=== PATIENT | female | born 1950 | race Caucasian/White ===

== ENCOUNTER 2024-08-03 17:43 | Emergency (ER) | payer MEDICARE, SELFPAY ==
--- NOTE | ~2024-08-03 | CT_ITS ---
History: Fall PROCEDURE: CT thoracic spine without intravenous contrast. COMPARISON: None TECHNIQUE: Multiple contiguous axial images of the thoracic spine were performed without the administration of i ntravenous contrast. DLP: 241 mGy-cm FINDINGS: 7 degrees of dextroscoliotic curvature is identified within the thoracic spine. Otherwise, maintenance of the normal curvature of the thoracic spine is present. No acute compression fractures are present. No soft tissue abnormality is noted. Impression: No acute fracture, as detailed above. Reviewed, dictated and finalized at location A. HIATRY RESIDENT Impression: No acute fracture, as detailed above.
--- NOTE | ~2024-08-03 | CT_ITS ---
History: Headache after fall PROCEDURE: CT head without contrast. COMPARISON: None TECHNIQUE: Axial imaging of the head performed from the skull base to the vertex without IV contrast. Sagittal a nd coronal reformations obtained. DLP: 605 mGy-cm FINDINGS: The ventricles are normal in size, shape and position. There is no mass, mass effect or midline shift. There is no abnormal extra-axial fluid collection or intracranial hemorrhage. Visualized paranasal sinuses are clear. The mastoid air cells are well aerated. No acute displaced fractures within the overlying cranium. Impression: No acute intracranial hemorrhage or suspicious mass effect. Reviewed, dictated and finalized at location A. D RUNNER Impression: No acute intracranial hemorrhage or suspicious mass effect.
--- NOTE | ~2024-08-03 | CT_ITS ---
History: Fall PROCEDURE: CT cervical spine without intravenous contrast. COMPARISON: None TECHNIQUE: Multiple contiguous axial images of the cervical spine were performed without the administration of i ntravenous contrast. DLP: 133 mGy-cm FINDINGS: Straightening and slight reversal of the normal curvature of the cervical spine is identified, likely muscular in origin. Degenerative disease is identified with osteophyte formation, disc space narrowing, endplate changes and facet arthropathy. No acute fractures are present. The bilateral lung apices are unremarkable. No soft tissue abnormality is present. The airway is unremarkable. Impression: Straightening and slight reversal of the normal curvature of the cervical spine, likely muscular in o rigin. Degenerative disease, without acute fracture. Reviewed, dictated and finalized at location A. OR SALES COMPENSATION ANALYST Impression: Straightening and slight reversal of the normal curvature of the cervical spine , likely muscular in origin. Degenerative disease, without acute fracture.
[2024-08-03 18:05] VITALS: BP 127/70; PULSE 80; RESP 16; TEMP 36.6; O2SAT 100
--- NOTE | 2024-08-03 18:12 | PC.NURSE ---
Pt. has no obvious injuries. No wounds. No areas of open skin.
--- OUTSIDE RECORDS SUMMARY | 2024-08-03 18:59 | XMS_ITS | Patient Health Summary ---
Author Organization [facility] [employer] Address [address] [place] [address] Care Team Providers Care [employer] Consultant Name Role Phone Brenda Voss MD Primary Care Provider [phone] Note from [facility],non-owned Affiliates and Associated Physician Practices is amultiple site organization consisting of ambulatory clinics and hospital sitesin [place], [place], [place] and [place]. This disclosure is being madepursuant to the Care Everywhere program and may not contain all information available regarding this patient. Last updated 18.[facility] Social History Tobacco Use Types Packs/Day Years Used Date Smoking Tobacco: Never Assessed Sex and Gender Information Value Date Recorded Sex Assigned at Not on file Gender Identity Not on file Sexual Orientation Not on file Procedures * XR LUMBAR SPINE 4VW OR MORE(Performed 10/23/2013) Performed for Neuropathy, peripheral Results * XR LUMBAR SPINE 4+VW ROUTINE (10/23/2013 12:48 PM CDT) Anatomical Region Laterality Modality Spine Radiographic Tricia ging 10/23/2013 12:5 9 PM CDT Narrative 10/23/2013 1:00 PM CDT 4 views lumbosacral spine INDICATION: Pain radiating down right leg COMPARISON: None FINDING:Vertebral bodies demonstrate normal height, disc space and alignment. Lumbosacral junction is intact. The facets and posterior processes are normal. Procedure Note Lawrence Murcia MD - 10/23/2013 4 views lumbosacral spine INDICATION: Pain radiating down right leg COMPARISON: None FINDING:Vertebral bodies demonstrate normal height, disc space and alignment. Lumbosacral junction is intact. The facets and posterior processes are normal. Brenda Voss MD [facility] Care Teams [employer] Consultant Relationship Specialty Start Date End Date Brenda Voss MD [id number] [id number] PCP - General Internal Medicine 10/23/13
--- OUTSIDE RECORDS SUMMARY | 2024-08-03 18:59 | XMS_ITS | Clinical Summary ---
Author Organization [facility] Address [address] [place] [address] Care Team Providers Care Target Setter Name Role Phone Kervin London MD Primary Care Provider [phone] Zonia Meadows HOT DIE PRESS FEEDER Unavailable [phone] Lawrence John Unavailable [phone] Allergies Active Allergy Reactions Criticality Noted Date Comments Amoxicillin-Pot Clavulanate Unknown 05/03/20 17 Sulfamethoxazole-Trimethopri m Swelling,Swollen tongue,Fatigue High 01/19/2019 Prednisone Unknown 05/18/2017 Sulfa (Sulfonamide Antibiotics) Fatigue,Unknown Low 01/19/2019 Medications escitalopram (LEXAPRO) 20 mg tabletIndication s:Anxiety with Depression Take 1 tablet (20 mg total) by mouth every morning Active acetaminophen ER (TYLENOL) 650 mg 8 hr tabletIndication s:Arthritic Pain Take 1 tablet (650 mg total) by mouth every 8 (eight) hours as needed for pain Active albuterol HFA (PROVENTIL HFA,VENTOLIN HFA,PROAIR HFA) 90 mcg/actuation inhalerIndicatio ns:Acute Asthma Attack Inhale 2 puffs every 6 (six) hours as needed for wheezing Active vitamin D3-vitamin K2 25 mcg (1,000 unit)-90 mcg tablet,disintegr ating Take 5,000 mg by mouth Active MULTIVITAMIN ORALIndications: supplement Take 1 tablet by mouth every morning 07/28/19 25 Discontinu ed(Therapy completed) anastrozole (ARIMIDEX) 1 mg tabletIndication s:Malignant neoplasm of overlapping sites of right breast in female, estrogen receptor positive (HCC) Take 1 tablet (1 mg total) by mouth daily 90 tablet 4 07/28/19 25 Discontinu ed(Therapy completed) Active Problems Problem Noted Date Diagnosed Date Bilateral impacted cerumen 12/21/2023 Tympanic membrane retraction, left 12/21/2023 Purulent postnasal drainage 08/05/2021 Sensorineural hearing loss (SNHL) of both ears 0 08/05/2021 Non-recurrent acute suppurat toyin otitis media of left ear without spontaneous rupture of tympanic membrane 07/21/2021 Dysfunction of right eustachian tube 02/09/2020 Mixed conductive and sensori neural hearing loss of right ear with restricted hearing of left ear 01/25/2020 Impacted cerumen of right ear 01/25/2020 Osteoporosis without current pathological fractu re 08/04/2019 Malignant neoplasm of overla pping sites of right breast in female, estrogen receptor positive 08/01/2019 Abnormal mammogram of right breast 04/10/2019 Resolved Problems Problem Noted Date Diagnosed Date Resolved Date Perforation of tympanic membrane 01/25/2020 02/09/2020 Encounters Date Type Department Care Team Description 08/01/2024 Telephone [facility] On[facility] [address] [place] [phone] Irma Hernadez RN 07/31/2024 Telephone [facility] Orthopedics and Sports Medicine [address] [place] [phone] Lawrence John PA Prolia status? 07/28/2024 3:00 PM AIRPLANE FLIGHT ATTENDANT Office Visit [facility] Oncology [address] [place] [address] [address] [place] [address] Zonia Meadows NP Malignant neoplasm of overlapping sites of right breast in female, estrogen receptor positive (HCC) (Primary Dx); Malignant neoplasm of upper-outer quadrant of left breast in female, estrogen receptor positive (HCC); jail (current) use of aromatase inhibitors; Post-menopausal osteoporosis; Screening for diabetes mellitus; Other emt intermediate (current) drug therapy; Vitamin D deficiency; Screening mammogram for breast cancer 07/28/2024 2:00 PM AIRPLANE FLIGHT ATTENDANT Lab [facility] [address] [place] [address] Malignant neoplasm of upper-outer quadrant of left breast in female, estrogen receptor positive (HCC); Malignant neoplasm of overlapping sites of right breast in female, estrogen receptor positive (HCC); long term acute care registered nurse (current) use of aromatase inhibitors; Post-menopausal osteoporosis; Screening for diabetes mellitus; Other halfway (current) drug therapy 06/28/2024 1:00 PM AIRPLANE FLIGHT ATTENDANT Office Visit [facility] Orthopedics and Sports Medicine [address] [place] [phone] Lawrence John PA Post-menopausal osteoporosis; long term acute care registered nurse (current) use of aromatase inhibitors 06/05/2024 Orders Only [facility]cology [address] [place] [address] [address] [place] [phone] Irma Hernadez, JM Post-menopausal osteoporosis (Primary Dx); long term acute care registered nurse (current) use of aromatase inhibitors 06/05/2024 Orders Only [facility] [address] [place] [phone] Zonia Meadows, TD 06/05/2024 Telephone [facility] [address] [place] [phone] Irma Hernadez, RN 05/16/2024 Orders Only [facility] Scanning, Provider from Last 3 Months Immunizations Name Administration Dates Next Due Influenza, Quadrivalent, Hig h Dose, Preservative Free, Intrr 03/20/2021,04/13/2020 Influenza, Unspecified 04/09/2023,04/02/2022 RSV Vaccine, Pref, Recombina nt, Subunit, Adjuvanted, PF, IM (Arexvy) 04/09/2023 Surgical History Surgery Date Site/Laterality Comments BREAST BIOPSY 04/19/2019 Right SECTION 1973, 1977 TONSILLECTOMY AND ADENOIDECTOMY as child BREAST BIOPSY 05/26/2019 Left MASTECTOMY COLONOSCOPY HAND SURGERY 04/15/2022 Medical History Medical History Date Comments Generalized headaches Neuropathy (CMS/HCC) Anxiety Asthma Allergic rhinitis Cancer (CMS/HCC) (HCC) HL (hearing loss) Dizziness Family History Medical History Relation Name Comments Dementia Father Dementia; Memor y loss. Has not been diagnosed with dementia yet Stroke Father Stroke; With ri ght sided deficit Coronary artery disease Mother Daniela nary artery disease; Had CABG and recent stent placement Dementia Mother Dementia; Memor y loss. Has not been diagnosed with dementia yet Skin cancer Mother Colon cancer Paternal Grandfather Relation Name Status Comments Father Alive Mother Alive Paternal Grandfather Social History Tobacco Use Types Packs/Day Years Used Date Smoking Tobacco: Never Smokeless Tobacco: Never Tobacco Cessation:Counseling Given: Not Answered Alcohol Use Standard Drinks/Week Comments Not Currently 0 (1 standard drink = 0.6 oz pur e alcohol) rare AUDIT-C Answer Date Recorded Frequency of Alcohol Consumption Not on file 07/28/2024 Q2: How many drinks containi ng alcohol do you have on a typical day when you are drinking? Patient does not drink Frequency of Binge Drinking Not on file 12/2024 Comments No Sex and Gender Information Value Date Recorded Sex Assigned at Not on file Legal Sex Female 4:53 PM AIRPLANE FLIGHT ATTENDANT Gender Identity Female 11/02/2019 9:02 PM CDT Sexual Orientation Straight 11/02/2019 9: 02 PM CDT Obstetrics History Last Filed Vital Signs Vital Sign Reading Time Taken Comments Blood Pressure 114/73 07/28/2024 2:16 PM AIRPLANE FLIGHT ATTENDANT Pulse 67 07/28/2024 2:16 PM AIRPLANE FLIGHT ATTENDANT Temperature 36.7 C (98 F) 07/28/2024 2:16 PM AIRPLANE FLIGHT ATTENDANT Respiratory Rate 18 07/28/2024 2:16 PM AIRPLANE FLIGHT ATTENDANT Oxygen Saturation 97% 07/28/2024 2:16 PM AIRPLANE FLIGHT ATTENDANT Inhaled Oxygen Concentration - - Weight 60.2 kg (132 lb 12.8 oz) 07/28/2024 2:16 PM AIRPLANE FLIGHT ATTENDANT Height 138.4 cm (4' 6.5 ) 07/28/2024 2:16 PM AIRPLANE FLIGHT ATTENDANT Body Mass Index 31.43 07/28/2024 2:16 PM AIRPLANE FLIGHT ATTENDANT Plan of Treatment Health Maintenance Due Date Last Done Comments Colon Cancer Screening-Colonoscopy 1950 Depression Screening 1950 Fall Risk Assessment 1950 Hepatitis C Screening 1950 Pneumococcal vaccine 65+ (1 of 2 - PCV) 1957 DTaP/Tdap/Td Vaccine (1 - Tdap) 1962 Hepatitis B Screening 1969 Well Visit 65+ 01/04/2016 Covid-19 Vaccine (3 - 2023-2 5 season) 2024 03/20/2021, 02/18/2021 Breast Cancer Screening-Mammogram 12/08/2024 12/09/2023, 12/09/2023, 12/03/2022, Additional history exists Osteoporosis Screening-Bone Density Scan 05/16/2026 05/16/2024, 03/02/2022, 03/01/2020 Influenza Vaccine Completed 03/18/2024, , 04/02/2022, Additional history exists Zoster Vaccine Completed 03/18/2024, 12/27/2023 Medical Devices Implanted Type Area Production Welder Device Identifier Shelf Expiration Date Model / Serial / Lot Sribu [id number] Magtrace Liquid Marker 10 Vial Carton - [id number] Implanted:Qty: 1 on 07/07/2019 by Kajal Tobar MD PhD at [facility] Srib[employer] [id number] / / Procedures Procedure Name Priority Date/Time Associated Diagnosis Comments EGFR Routine 07/28/2024 2:05 PM AIRPLANE FLIGHT ATTENDANT Malignant neoplasm of upper-outer quadrant of left breast in female, estrogen receptor positive (HCC) Malignant neoplasm of overlapping sites of right breast in female, estrogen receptor positive (HCC) jail (current) use of aromatase inhibitors Post-menopausal osteoporosis Screening for diabetes mellitus Other halfway (current) drug therapy DIFFERENTIAL AUTO Routine 07/28/2024 2:0 5 PM AIRPLANE FLIGHT ATTENDANT Malignant neoplasm of upper-outer quadrant of left breast in female, estrogen receptor positive (HCC) Malignant neoplasm of overlapping sites of right breast in female, estrogen receptor positive (HCC) jail (current) use of aromatase inhibitors Post-menopausal osteoporosis Screening for diabetes mellitus Other halfway (current) drug therapy CBC WITH AUTO DIFFERENTIAL Routine 07/28/2024 2:05 PM AIRPLANE FLIGHT ATTENDANT Malignant neoplasm of upper-outer quadrant of left breast in female, estrogen receptor positive (HCC) Malignant neoplasm of overlapping sites of right breast in female, estrogen receptor positive (HCC) jail (current) use of aromatase inhibitors Post-menopausal osteoporosis Screening for diabetes mellitus Other emt intermediate (current) drug therapy COMPREHENSIVE METABOLIC PANEL Routine 07/28/2024 2:05 PM AIRPLANE FLIGHT ATTENDANT Malignant neoplasm of upper-outer quadrant of left breast in female, estrogen receptor positive (HCC) Malignant neoplasm of overlapping sites of right breast in female, estrogen receptor positive (HCC) jail (current) use of aromatase inhibitors Post-menopausal osteoporosis Screening for diabetes mellitus Other halfway (current) drug therapy VITAMIN D 25 HYDROXY Routine 07/28/2024 2:05 PM AIRPLANE FLIGHT ATTENDANT Malignant neoplasm of upper-outer quadrant of left breast in female, estrogen receptor positive (HCC) Malignant neoplasm of overlapping sites of right breast in female, estrogen receptor positive (HCC) long term acute care registered nurse (current) use of aromatase inhibitors Post-menopausal osteoporosis Screening for diabetes mellitus Other halfway (current) drug therapy SCAN - RADIOLOGY/IMAGING 05/16/2024 SCREENING MAMMOGRAM LEFT W JANES UNILATERAL ONLY Schedule Routine, Read Routine (OP Routine) 12/09/2023 10:48 AM CDT Malignant neoplasm of overlapping sites of right breast in female, estrogen receptor positive (HCC) History of right mastectomy Encounter for follow-up surveillance of breast cancer Encounter for screening mammogram for malignant neoplasm of breast 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 73 m2 Comment: Interpretive Data Reference Interval Normal >/= 90 mL/min/1.73m2 Mildly decreased* 60 - 89 mL/min/1.73m2 Mildly to moderately decreased 45 - 59 mL/min/1.73m2 Moderately to severely decreased 30 - 44 mL/min/1.73m2 Severely decreased 15 - 29 mL/min/1.73m2 Kidney Failure < 15 mL/min/1.73m2 *Relative to young adult level Estimated glomerular filtration rate is determined by the 2020 CKD-EPI equation recommended by the National Kidney Foundation (A Unifying Approach to GFR Estimation: Recommendations of the NKF-ASK Task Force on Reassessing the Inclusion of Race in Diagnosing Kidney Disease, JASN 2020). The CKD-EPI equation should not be used for patients with unstable renal function and has not been validated in children and those over 70. Current interpretive data was last reviewed 2021. Testing performed by: [address] [address] Blood 07/28/2024 2:05 PM AIRPLANE FLIGHT ATTENDANT 07/28/2024 2:10 PM AIRPLANE FLIGHT ATTENDANT Zonia Meadows HOT DIE PRESS FEEDER LAB BLOOD ORDERABLES Final Result [facility] Department of Laboratories [place], [place] [id number] * Differential, auto (07/28/2024 2:05 PM AIRPLANE FLIGHT ATTENDANT) Neutrophil abs 3.3 1.5 - 6.5 K/cumm Comment:Testing performed by : [address] [address] Imm gran abs 0.0 0.0 - 0.1 K/cumm GRIFFIN Comment:Testing performed by : [address] [address] Lymphocyte abs 2.0 0.8 - 3.3 K/cumm GRIFFIN Comment:Testing performed by : [address] [address] Monocyte abs 0.4 0.2 - 0.8 K/cumm GRIFFIN Comment:Testing performed by : [address] [address] Eosinophil abs 0.1 0.0 - 0.5 K/cumm GRIFFIN Comment:Testing performed by : [address] [address] Basophil abs 0.1 0.0 - 0.1 K/cumm GRIFFIN Comment:Testing performed by : [address] [address] Neutrophil pct 56.3 % [facility] Comment: Interpretive Data Percent cell count reference ranges are not reported, since discordance with absolute values may lead to misinterpretation of CBC data. Current Interpretive Data was last revised on 2017. Testing performed by: [address] [address] Imm gran pct 0.2 % [facility] Comment: Interpretive Data Percent cell count reference ranges are not reported, since discordance with absolute values may lead to misinterpretation of CBC data. Current Interpretive Data was last revised on 2017. Testing performed by: [address] [address] Lymphocyte pct 34.1 % [facility] Comment: Interpretive Data Percent cell count reference ranges are not reported, since discordance with absolute values may lead to misinterpretation of CBC data. Current Interpretive Data was last revised on 2017. Testing performed by: [address] [address] Monocyte pct 7.3 % [facility] Comment: Interpretive Data Percent cell count reference ranges are not reported, since discordance with absolute values may lead to misinterpretation of CBC data. Current Interpretive Data was last revised on 2017. Testing performed by: [address] [address] Eosinophil pct 1.2 % [facility] Comment: Interpretive Data Percent cell count reference ranges are not reported, since discordance with absolute values may lead to misinterpretation of CBC data. Current Interpretive Data was last revised on 2017. Testing performed by: [address] [address] Basophil pct 0.9 % [facility] Comment: Interpretive Data Percent cell count reference ranges are not reported, since discordance with absolute values may lead to misinterpretation of CBC data. Current Interpretive Data was last revised on 2017. Testing performed by: [address] [address] Blood 07/28/2024 2:05 PM AIRPLANE FLIGHT ATTENDANT 07/28/2024 2:09 PM AIRPLANE FLIGHT ATTENDANT Zonia Meadows HOT DIE PRESS FEEDER LAB BLOOD ORDERABLES Final Result [facility] [address] [facility] Department [place] [address] * CBC with auto differential (07/28/2024 2:05 PM AIRPLANE FLIGHT ATTENDANT) WBC 5.8 3.8 - 9.9 K/cumm Comment:Testing performed by : [address] [address] Hgb 13.8 11.9 - 15.5 g/dL [facility] Comment:Testing performed by : [address], [address] Hct 41.6 35.6 - 45.5 % [facility] Comment:Testing performed by : [address] [address] Plt 219 150 - 400 K/cumm GRIFFIN Comment:Testing performed by : [address] [address] MPV 9.1 9.1 - 12.3 fL [facility] Comment:Testing performed by : [address] [address] RBC 4.61 3.90 - 5.20 M/cumm GRIFFIN Comment:Testing performed by : [address] [address] MCV 90.2 81.3 - 96.4 fL [facility] Comment:Testing performed by : [address] [address] MCH 29.9 27.1 - 33.3 pg [facility]FFIN Comment:Testing performed by : [address] [address] MCHC 33.2 32.3 - 35.7 g/dL [facility] Comment:Testing performed by : [address], [address] RDW CV 12.9 11.1 - 14.9 % [facility] Comment:Testing performed by : [address], [address] RDW SD 42.5 35.7 - 48.1 fL [facility] ARRIETA Comment:Testing performed by : [address] [address] NRBC abs 0.00 0.00 - 0.01 K/cumm [facility] AR[facility]ETA Comment:Testing performed by : [address] [address] Blood 07/28/2024 2:05 PM AIRPLANE FLIGHT ATTENDANT 07/28/2024 2:09 PM AIRPLANE FLIGHT ATTENDANT Zonia Meadows HOT DIE PRESS FEEDER LAB BLOOD ORDERABLES Final Result Performing Organization Address City/[facility]/ZIP Co de Phone Number [address] [place] [address] * Vitamin D 25 hydroxy (07/28/2024 2:05 PM AIRPLANE FLIGHT ATTENDANT) [facility] Vitamin D 25-OH 58.0 30.0 - 80.0 ng/mL Blood 07/28/2024 2:05 PM AIRPLANE FLIGHT ATTENDANT 07/28/2024 4:43 PM AIRPLANE FLIGHT ATTENDANT Zonia Meadows HOT DIE PRESS FEEDER LAB BLOOD ORDERABLES Final Result Performing Organization Address City/[facility] Co de Phone Number [address] [address] * Comprehensive metabolic panel (07/28/2024 2:05 PM AIRPLANE FLIGHT ATTENDANT) [facility] Sodium 141 135 - 145 mmol/L Comment:Testing performed by : [address] [address] Potassium, pl 4.3 3.3 - 4.9 mmol/L [facility] ARRIETA Comment:Testing performed by : [address] [address] Chloride 106 97 - 110 mmol/L [facility] ARRIETA Comment:Testing performed by : [address] [address] CO2 25 22 - 32 mmol/L [facility] ARRIETA Comment:Testing performed by : [address] [address] Anion gap 10 2 - 15 mmol/L [facility] Comment:Testing performed by : [address] [address] BUN 15 6 - 25 mg/dL [facility] Comment:Testing performed by : [address], [place]., [address] Creatinine 0.80 0.60 - 1.10 mg/dL [facility] Comment:Testing performed by : [address] [address] Glucose 103 70 - 199 mg/dL [facility] Comment: Interpretive Data Fasting glucose >/= 126 mg/dl is diagnostic for diabetes. Fasting is defined as no caloric intake for at least 8 hours. Fasting glucose between 100 mg/dl to 125 mg/dl is diagnostic of prediabetes. In a patient with classic symptoms of hyperglycemia or hyperglycemic crisis, a random glucose >/= 200 mg/dl is diagnostic for diabetes. In the absence of unequivocal hyperglycemia, results should be confirmed by repeat testing. The classification and Diagnosis of Diabetes Diabetes Care 202; 46: S19-S40. Current interpretive data was last revised 2022. Testing performed by: [address] [address] Calcium 10.0 8.5 - 10.3 mg/dL [facility] Comment:Testing performed by : [address] [address] Bilirubin, total 0.3 0.1 - 1.2 mg/dL [facility] Comment:Testing performed by : [address] [address] Protein, pl 7.2 6.5 - 8.5 g/dL [facility] Comment:Testing performed by : [address] [address] Albumin 4.2 3.5 - 5.0 g/dL GRIFFNI Comment:Testing performed by : [address] [address] Alk phos 95 40 - 130 Units/L [facility] Comment:Testing performed by : [address] [address] ALT 23 7 - 45 Units/L [facility] ARRIETA Comment:Testing performed by : [facility], [address] [place] [address]., [address] AST 25 10 - 45 Units/L GRIFFIN Comment:Testing performed by : [facility], [address] [place] [address]., [address] Blood 07/28/2024 2:05 PM AIRPLANE FLIGHT ATTENDANT 07/28/2024 2:10 PM AIRPLANE FLIGHT ATTENDANT Zonia Meadows NP LAB BLOOD ORDERABLES Final Result [facility] [address] [facility] Department [place] [address] * SCAN - RADIOLOGY/IMAGING (05/16/2024) Anatomical Region Laterality Modality Other us Provider Scanning Final Result * Screening Mammogram Left W Janes Unilateral Only (12/09/2023 10:48 AM CDT) Anatomical Region Laterality Modality Breast Left Mammography Narrative 12/10/2023 11:03 AM CDT Mammogram Technique: Left Breast Digital Breast Tomosynthesis, Unilateral C-view 2D Screening mammogram. Views obtained: left craniocaudal and left mediolateral oblique. Computer Aided Detection was performed. Mammogram Findings: The present examination has been compared to prior imaging studies performed on 11/22/2020, and at [facility] on 12/01/2021 and 12/03/2022. The breast is heterogeneously dense, which may obscure small masses. There is no suspicious abnormality in the left breast. Patient status post contralateral mastectomy for personal history of breast cancer. Impression: There is no mammographic evidence of malignancy. Annual screening mammography is recommended. If supplemental screening is desired, breast MRI would be recommended in this patient with heterogeneously dense breasts. OVERALL FINAL ASSESSMENT: BI-RADS CATEGORY 1: Negative. Procedure Note Katy Bazzi MD - 12/10/2023 Mammogram Technique: Left Breast Digital Breast Tomosynthesis, Unilateral C-view 2D Screening mammogram. Views obtained: left craniocaudal and left mediolateral oblique. Computer Aided Detection was performed. Mammogram Findings: The present examination has been compared to prior imaging studies performed on 11/22/2020, and at [facility] on 12/01/2021 and 12/03/2022. The breast is heterogeneously dense, which may obscure small masses. There is no suspicious abnormality in the left breast. Patient status post contralateral mastectomy for personal history ofbreast cancer. Impression: There is no mammographic evidence of malignancy. Annual screening mammography is recommended. If supplemental screeningis desired, breast MRI would be recommended in this patient with heterogeneously dense breasts. OVERALL FINAL ASSESSMENT: BI-RADS CATEGORY 1: Negative. us Provider Transcribed Order IMG MAMMO PROCEDURES Final Result from Last 3 Months or Most Recently Relevant to Health Maintenance Insurance MEDICARE COMMERCIAL GENERIC MEDICARE [facility] Advance Directives For more information, please contact: [phone] Documents on File Type Date Recorded Patient Summer Clerk Expl anation ADVANCE DIRECTIVE 07/07/2019 8:04 AM POWER OF POUND ATTENDANT-MEDICAL ADVANCE DIRECTIVE 07/07/2019 POWER OF A TTORNEY-MEDICAL * Full Code (Latest Code Status on File) Date Activated Date Inactivated Comments 07/07/2019 2:33 PM 07/09/2019 7:12 AM Care Teams Target Setter Relationship Specialty [place] [address] [place] [address] PCP - General Family Practice 03/22/19 Zonia Meadows NP [address] [address] Nurse Practitioner Medical Oncology 02/25/22 Lawrence John PA [address] [address] Physician Service Center Supervisor Orthopedic Surgery 06/06/24
--- OUTSIDE RECORDS SUMMARY | 2024-08-03 18:59 | XMS_ITS ---
Author Organization [facility] Address [address] [place] [address] Care Team Providers Care Surveying Crew Stake Runner Name Role Phone Kervin London MD Primary Care Provider +- [phone] Zonia Meadows NP Unavailable [phone] Lawrence John Unavailable [phone] Active Problems Problem Noted Date Diagnosed Date [...] 08/01/2019 Abnormal mammogram of right breast 04/10/2019 Current Oncology Plans No current plan information found. Past Plans Oncology Supportive Care Plan Name Start Date Discontinue Date Treatment Medications Discontinue Reason Plan Provider Zoledronic Acid (ZOMETA) Infusion 11/03/2019 02/10/2023 No medications scheduled. Therapy Complete Zonia Meadows NP Radiation Treatments * No radiation treatments are [facility]. Treatments may have been administered in another system. Resolved Problems Problem Noted Date Diagnosed Date Resolved Date Perforation of tympanic membrane 01/25/2020 02/09/2020
--- OUTSIDE RECORDS SUMMARY | 2024-08-03 18:59 | XMS_ITS | Referral Summary ---
Author Organization [facility] Address [facility] [place] [address] Care Team Providers Care Director Imaging Name Role Phone Kervin London MD Primary Care Provider [phone]- [phone] Zonia Meadows BRINE MAKER Unavailable + [phone] Lawrence John Unavailable [phone] Encounters Date Type Department Care Team Description 08/01/2024 Telephone [facility] [address] [place] [address] [address] [place] [address] Irma Hernadez RN 07/31/2024 Telephone [facility] Orthopedics [facility] Sports Medicine [facility] [address] [address] Lawrence John PA Prolia status? 07/28/2024 2:00 PM MEAL COOK Lab [facility] [address] [place] [address] Malignant neoplasm of upper-outer quadrant of left breast in female, estrogen receptor positive (HCC); Malignant neoplasm of overlapping sites of right breast in female, estrogen receptor positive (HCC); 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; Post-menopausal osteoporosis; Screening for diabetes mellitus; Other usp (current) drug therapy 07/28/2024 3:00 PM MEAL COOK Office Visit [facility] [address] [place] [address] [address] [place] [address] Zonia Meadows, TD Malignant neoplasm of overlapping sites of right breast in female, estrogen receptor positive (HCC) (Primary Dx); Malignant neoplasm of upper-outer quadrant of left breast in female, estrogen receptor positive (HCC); 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; Post-menopausal osteoporosis; Screening for diabetes mellitus; Other usp (current) drug therapy; Vitamin D deficiency; Screening mammogram for breast cancer 06/28/2024 1:00 PM MEAL COOK Office Visit [facility] Orthopedics and Sports Medicine [address] [place] [phone] Lawrence John PA Post-menopausal osteoporosis; alf (current) use of aromatase inhibitors 06/05/2024 Orders Only [facility] [address] [place] [address] [address] [place] [address] Irma Hernadez, JM Post-menopausal osteoporosis (Primary Dx); 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 06/05/2024 Orders Only [facility] [address] [place] [address] [address] [place] [address] Zonia Meadows NP 06/05/2024 Telephone [facility] [address] [place] [address] [address] [place] [address] Irma Hernadez, JM 05/16/2024 Orders Only [facility] Scanning, Provider from Last 3 Months Allergies Active Allergy Reactions Criticality Noted Date [...] Date Perforation of tympanic membrane 01/25/2020 02/09/2020 Immunizations Name Administration Dates Next Due Influenza, Quadrivalent, [place] Dose, Preservative Free, Intrr 03/20/2021,04/13/2020 Influenza, Unspecified 04/09/2023,04/02/2022 RSV Vaccine, Pref, Recombina nt, Subunit, Adjuvanted, PF, IM (Arexvy) 04/09/2023 Social History Tobacco Use Types Packs/Day Years [...] on file Legal Sex Female 4:53 PM MEAL COOK Gender Identity Female 11/02/2019 9:02 PM CDT Sexual Orientation Straight 11/02/2019 9: 02 PM CDT Last Filed Vital Signs Vital Sign Reading Time Taken Comments Blood Pressure 114/73 07/28/2024 2:16 PM MEAL COOK Pulse 67 07/28/2024 2:16 PM MEAL COOK Temperature 36.7 C (98 F) 07/28/2024 2:16 PM MEAL COOK Respiratory Rate 18 07/28/2024 2:16 PM MEAL COOK Oxygen Saturation 97% 07/28/2024 2:16 PM MEAL COOK Inhaled Oxygen Concentration - - Weight 60.2 kg (132 lb 12.8 oz) 07/28/2024 2:16 PM MEAL COOK Height 138.4 cm (4' 6.5 ) 07/28/2024 2:16 PM MEAL COOK Body Mass Index 31.43 07/28/2024 2:16 PM MEAL COOK Plan of Treatment Not on file Medical Devices Implanted Type Area Materials Supervisor Device Identifier Shelf Expiration Date Model / Serial / Lot Mr Banana [id number] Magtrace Liquid Marker 10 Vial Carton - [id number] Implanted:Qty: 1 on 07/07/2019 by Kajal Tobar MD PhD at [facility] Mr Banana [id number] / / Procedures Procedure Name Priority Date/Time Associated Diagnosis Comments EGFR Routine 07/28/2024 2:05 PM MEAL COOK Malignant neoplasm of upper-outer quadrant of left breast in female, estrogen receptor positive (HCC) Malignant neoplasm of overlapping sites of right breast in female, estrogen receptor positive (HCC) alf (current) use of aromatase inhibitors Post-menopausal osteoporosis Screening for diabetes mellitus Other usp (current) drug therapy DIFFERENTIAL AUTO Routine 07/28/2024 2:0 5 PM MEAL COOK Malignant neoplasm of upper-outer quadrant of left breast in female, estrogen receptor positive (HCC) Malignant neoplasm of overlapping sites of right breast in female, estrogen receptor positive (HCC) 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 Post-menopausal osteoporosis Screening for diabetes mellitus Other rat exterminator (current) drug therapy CBC WITH AUTO DIFFERENTIAL Routine 07/28/2024 2:05 PM MEAL COOK Malignant neoplasm of upper-outer quadrant of left breast in female, estrogen receptor positive (HCC) Malignant neoplasm of overlapping sites of right breast in female, estrogen receptor positive (HCC) 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 Post-menopausal osteoporosis Screening for diabetes mellitus Other rat exterminator (current) drug therapy COMPREHENSIVE METABOLIC PANEL Routine 07/28/2024 2:05 PM MEAL COOK Malignant neoplasm of upper-outer quadrant of left breast in female, estrogen receptor positive (HCC) Malignant neoplasm of overlapping sites of right breast in female, estrogen receptor positive (HCC) alf (current) use of aromatase inhibitors Post-menopausal osteoporosis Screening for diabetes mellitus Other rat exterminator (current) drug therapy VITAMIN D 25 HYDROXY Routine 07/28/2024 2:05 PM MEAL COOK Malignant neoplasm of upper-outer quadrant of left breast in female, estrogen receptor positive (HCC) Malignant neoplasm of overlapping sites of right breast in female, estrogen receptor positive (HCC) alf (current) use of aromatase inhibitors Post-menopausal osteoporosis Screening for diabetes mellitus Other usp (current) drug therapy SCAN - RADIOLOGY/IMAGING 05/16/2024 [...] Maintenance Results * eGFR (07/28/2024 2:05 PM MEAL COOK) eGFR 78 >=60 mL/min/1. 73 m2 Comment: [...] was last reviewed 2021. Testing performed by: [address] [address] Blood 07/28/2024 2:05 PM MEAL COOK 07/28/2024 2:10 PM MEAL COOK us Zonia Meadows BRINE MAKER LAB BLOOD ORDERABLES Final Result TATYANANANETTE [address] [facility] Department [place] [address] * Differential, auto (07/28/2024 2:05 PM MEAL COOK) Neutrophil abs 3.3 1.5 - 6.5 K/cumm Comment:Testing performed by : [address] [address] Imm gran abs 0.0 0.0 - 0.1 K/cumm [facility] Comment:Testing performed by : [address] [address] Lymphocyte abs 2.0 0.8 - 3.3 K/cumm [place] Comment:Testing performed by : [address] [address] Monocyte abs 0.4 0.2 - 0.8 K/cumm [facility] Comment:Testing performed by : [address] [address] Eosinophil abs 0.1 0.0 - 0.5 K/cumm [facility] Comment:Testing performed by : [address] [address] Basophil abs 0.1 0.0 - 0.1 K/cumm CERNANETTE Comment:Testing performed by : [address] [address] Neutrophil pct 56.3 % [facility] Comment: Interpretive Data Percent cell count reference ranges are not reported, since discordance with absolute values may lead to misinterpretation of CBC data. Current Interpretive Data was last revised on 2017. Testing performed by: [address] [address] Imm gran pct 0.2 % [facility] Comment: Interpretive Data Percent cell count reference ranges are not reported, since discordance with absolute values may lead to misinterpretation of CBC data. Current Interpretive Data was last revised on 2017. Testing performed by: [address] [address] Lymphocyte pct 34.1 % [facility] Comment: Interpretive Data Percent cell count reference ranges are not reported, since discordance with absolute values may lead to misinterpretation of CBC data. Current Interpretive Data was last revised on 2017. Testing performed by: [address] [address] Monocyte pct 7.3 % [facility] Comment: Interpretive Data Percent cell count reference ranges are not reported, since discordance with absolute values may lead to misinterpretation of CBC data. Current Interpretive Data was last revised on 2017. Testing performed by: [address] [address] Eosinophil pct 1.2 % [facility] Comment: Interpretive Data Percent cell count reference ranges are not reported, since discordance with absolute values may lead to misinterpretation of CBC data. Current Interpretive Data was last revised on 2017. Testing performed by: [address] [address] Basophil pct 0.9 % [facility] Comment: Interpretive Data Percent cell count reference ranges are not reported, since discordance with absolute values may lead to misinterpretation of CBC data. Current Interpretive Data was last revised on 2017. Testing performed by: [address] [address] Blood 07/28/2024 2:05 PM MEAL COOK 07/28/2024 2:09 PM MEAL COOK Zonia Meadows BRINE MAKER LAB BLOOD ORDERABLES Final Result [facility] [address] [facility] Department [place] [address] * CBC with auto differential (07/28/2024 2:05 PM MEAL COOK) WBC 5.8 3.8 - 9.9 K/cumm Comment:Testing performed by : [address] [address] Hgb 13.8 11.9 - 15.5 g/dL [facility] Comment:Testing performed by : [address] [address] Hct 41.6 35.6 - 45.5 % [facility] Comment:Testing performed by : [address] [address] Plt 219 150 - 400 K/cumm [facility] Comment:Testing performed by : [address] [address] MPV 9.1 9.1 - 12.3 fL [facility] Comment:Testing performed by : [address] [address] RBC 4.61 3.90 - 5.20 M/cumm [facility] Comment:Testing performed by : [address] [address] MCV 90.2 81.3 - 96.4 fL [facility] Comment:Testing performed by : [address] [address] MCH 29.9 27.1 - 33.3 pg [facility] Comment:Testing performed by : [address] [address] MCHC 33.2 32.3 - 35.7 g/dL [facility] ARRIETA Comment:Testing performed by : [address], [address] RDW CV 12.9 11.1 - 14.9 % [facility] Comment:Testing performed by : [address] [address] RDW SD 42.5 35.7 - 48.1 fL [facility] [place] Comment:Testing performed by : [address] [address] NRBC abs 0.00 0.00 - 0.01 K/cumm [facility]ET[facility] Comment:Testing performed by : [address], [address] Blood 07/28/2024 2:05 PM MEAL COOK 07/28/2024 2:09 PM MEAL COOK Zonia Meadows NP LAB BLOOD ORDERABLES Final Result Performing Organization Address City/[facility]/ZIP Co de Phone Number [address] [address] * Vitamin D 25 hydroxy (07/28/2024 2:05 PM MEAL COOK) [facility] Vitamin D 25-OH 58.0 30.0 - 80.0 ng/mL Blood 07/28/2024 2:05 PM MEAL COOK 07/28/2024 4:43 PM MEAL COOK Zonia Meadows BRINE MAKER LAB BLOOD ORDERABLES Final Result Performing Organization Address City/[facility]/ZIP Co de Phone Number [address] [address] * Comprehensive metabolic panel (07/28/2024 2:05 PM MEAL COOK) [facility] Sodium 141 135 - 145 mmol/L Comment:Testing performed by : [address] [address] Potassium, pl 4.3 3.3 - 4.9 mmol/L [facility] Comment:Testing performed by : [address], [place]., [address] Chloride 106 97 - 110 mmol/L [facility] Comment:Testing performed by : [address], [place]., [address] CO2 25 22 - 32 mmol/L [facility] Comment:Testing performed by : [address], [place]., [address] Anion gap 10 2 - 15 mmol/L [facility] Comment:Testing performed by : [address], [place]., [address] BUN 15 6 - 25 mg/dL [facility] Comment:Testing performed by : [address], [place]., [address] Creatinine 0.80 0.60 - 1.10 mg/dL [facility] Comment:Testing performed by : [address], [place]., [address] Glucose 103 70 - 199 mg/dL [facility] Comment: Interpretive Data Fasting glucose >/= 126 [...] classification and Diagnosis of Diabetes Diabetes Care 2021; 46: S19-S40. Current interpretive data was last revised 2022. Testing performed by: [address] [address] Calcium 10.0 8.5 - 10.3 mg/dL [facility] Comment:Testing performed by : [address] [address] Bilirubin, total 0.3 0.1 - 1.2 mg/dL [facility] Comment:Testing performed by : [address] [address] Protein, pl 7.2 6.5 - 8.5 g/dL [facility] Comment:Testing performed by : [address], [place]., [address] Albumin 4.2 3.5 - 5.0 g/dL [facility] Comment:Testing performed by : [facility], [address] [place] [address]., [address] Alk phos 95 40 - 130 Units/L [place] Comment:Testing performed by : [address] [address] ALT 23 7 - 45 Units/L [facility] Comment:Testing performed by : [address] [address] AST 25 10 - 45 Units/L [facility] Comment:Testing performed by : [address] [address] Blood 07/28/2024 2:05 PM MEAL COOK 07/28/2024 2:10 PM MEAL COOK Zonia Meadows NP LAB BLOOD ORDERABLES Final Result Performing Organization Address City/State/[facility] Co de Phone Number [facility] [address] [facility] Department [place] [address] * SCAN - RADIOLOGY/IMAGING (05/16/2024) Anatomical Region Laterality Modality Other Provider Scanning Final Result * Screening Mammogram [...] imaging studies performed on 11/22/2020, and at [facility] on 12/01/2021 and 12/03/2022. The breast is [...] imaging studies performed on 11/22/2020, and at [facility] on 12/01/2021 and 12/03/2022. The breast is [...] Health Maintenance Insurance MEDICARE COMMERCIAL GENERIC MEDICARE [facility] Advance Directives For more information, please contact: [phone] Documents on File Type Date Recorded Patient Installer Interior Assemblies Expl anation ADVANCE DIRECTIVE 07/07/2019 8:04 AM POWER OF ONCOLOGY REP SPECIALIST-MEDICAL ADVANCE DIRECTIVE 07/07/2019 POWER OF A TTORNEY-MEDICAL * Full Code (Latest Code Status on File) Date Activated Date Inactivated Comments 07/07/2019 2:33 PM 07/09/2019 7:12 AM Care Teams Director Imaging Relationship Specialty [place] [address] [facility] [address] [address] PCP - General Family Practice 03/22/19 Zonia Meadows NP [address] [facility] [address] [address] Nurse Practitioner Medical Oncology 02/25/22 Lawrence John PA [address] [address] Physician Senior Shipping Clerk Orthopedic Surgery 06/06/24
--- OUTSIDE RECORDS SUMMARY | 2024-08-03 18:59 | XMS_ITS | Referral Summary ---
Author Organization [facility] Address [address] [facility] [place] [address] Care Team Providers Care Wharf Hand Name Role Phone Brenda Voss MD Primary Care Provider [phone] [facility],non-owned Affiliates and Associated Physician Practices is amultiple site organization consisting of ambulatory clinics and hospital sitesin [place], [place], [place] and [place]. This disclosure is being madepursuant to the Care Everywhere program and may not contain all information available regarding this patient. Last updated 18.[facility] [employer] Social History Tobacco Use Types Packs/Day Years Used Date Smoking Tobacco: Never Assessed Sex and Gender Information Value Date Recorded Sex Assigned at Not on file Gender Identity Not on file Sexual Orientation Not on file Plan of Treatment Not on file Advance Directives Documents on File Type Date Recorded Patient Rouge Miller Expl anation Adv Directive/Living Will/POA 10/23/2013 12:10 PM Care Teams Wharf Hand Relationship Specialty Start Date End Date Brenda Voss MD [address] [place] [address] PCP - General Internal Medicine 10/23/13
--- OUTSIDE RECORDS SUMMARY | 2024-08-03 18:59 | XMS_ITS | Encounter Summary ---
Author Organization [facility] Address [facility] [place] [address] Care Team Providers Care Technical Business Systems Analyst Name Role Phone Lawrence Vila MD Primary Care Provider [phone] Kervin London MD Primary Care Provider [phone] Encounter Details Date Type Department Care Team (Late st Contact Info) Description 11/08/2015 Abstract [facility] Conversion Lawrence Vila MD [id number] [place] [address] Social History Tobacco Use Types Packs/Day Years Used Date Smoking Tobacco: Never Assessed Comments Unknown Sex and Gender Information Value Date Recorded Sex Assigned at Not on file Legal Sex Female 7:59 PM CDT Gender Identity Female 07/08/2021 7:34 AM WIRE GALVANIZER Sexual Orientation Straight 07/08/2021 7: 34 AM WIRE GALVANIZER documented as of this encounter Miscellaneous Notes * Letter - Lawrence Vila MD - 11/08/2015 12:00 AM CDT November 08, 2015 Shania Palma [facility] [place] [address] Dear Shania Palma, Thank you for choosing [facility] for your health care needs. We appreciate the opportunity to help you maintain your well being. You recently had a metabolic panel and lipid panel. Your results came back normal. Please remember to follow up as discussed at your last appointment .If you have any questions please feel free to call the office at [phone], Option #3 or Option #1 to make an appointment to discuss these results. Respectfully Yours, Electronically Signed by: Lawrence Vila MD Cc: Patient?s Medical Record GALVANIZER documented in this encounter Plan of Treatment Upcoming Encounters Date Type Department Care Team (Late st Contact Info) Description 01/22/2025 11:00 AM CDT Office Visit [facility] Audiology [address] [place] [address] LeannaRenetta mas, TELMA [address] [place] [address] documented as of this encounter Visit Diagnoses Not on filedocumented in this encounter Additional Health Concerns Infection Onset Date Last Indicated Resolved Time COVID-19 Rule Out 09/21/2022 09/21/2022 09/21/2022 9:48 AM CDT COVID-19 Confirmed 09/21/2022 09/21/2022 12:32 AM CDT documented as of this encounter Care Teams Technical Business Systems Analyst Relationship Specialty Start Date End Date Lawrence Vila MD [id number] [place] [address] PCP - General 07/07/16 01/14/20 [place] [address] [place] [address] PCP - General FAMILY PRACTICE 01/15/20 documented as of this encounter
--- OUTSIDE RECORDS SUMMARY | 2024-08-03 18:59 | XMS_ITS | Encounter Summary ---
Author Organization [facility] Address [facility] [place] [address] Care Team Providers Care Solvent Recoverer Name Role Phone Lawrence Vila MD Primary Care Provider [phone] Kervin London MD Primary Care Provider [phone] Encounter Details Date Type Department Care Team (Late st Contact Info) Description 12/11/[address] [facility] Conversion Lawrence Vila MD [address] [facility] [id number] [place] [address] Social History Tobacco Use Types Packs/Day Years Used Date Smoking Tobacco: Never Assessed Comments Unknown Sex and Gender Information Value Date Recorded Sex Assigned at Not on file Legal Sex Female 7:59 PM CDT Gender Identity Female 07/08/2021 7:34 AM DOOR MACHINE OPERATOR Sexual Orientation Straight 07/08/2021 7: 34 AM DOOR MACHINE OPERATOR documented as of this encounter Miscellaneous Notes * Letter - Lawrence Vila MD - 12/11/2016 12:00 AM CDT Dec 11, 2016 Shania Palma [facility] [place] [address] Dear Shania Palma, Thank you for choosing [facility] for your health care needs. We appreciate the opportunity to help you maintain your well being. You recently had a mammogram. Your results came back normal. Please remember to follow up as discussed at your last appointment .If you have any questions please feel free to call the office at [phone], Option #3 or Option #1 to make an appointment to discuss these results. Respectfully Yours, Electronically Signed by: Lawrence Vila MD Cc: Patients Medical Record MACHINE OPERATOR documented in this encounter Plan of Treatment Upcoming Encounters Date Type Department Care Team (Late st Contact Info) Description 01/22/2025 11:00 AM CDT Office Visit [facility] Audiology [address] [place] [address] LeannaHalleRenetta, AUD [address] [place] [address] documented as of this encounter Visit Diagnoses Not on filedocumented in this encounter Additional Health Concerns Infection Onset Date Last Indicated Resolved Time COVID-19 Rule Out 09/21/2022 09/21/2022 09/21/2022 9:48 AM CDT COVID-19 Confirmed 09/21/2022 09/21/2022 12:32 AM CDT documented as of this encounter Care Teams Solvent Recoverer Relationship Specialty Start Date End Date Lawrence Vila MD [address] [facility] [id number] [place] [address] PCP - General 07/07/16 01/14/20 [place] [address] [place] [address] PCP - General FAMILY PRACTICE 01/15/20 documented as of this encounter
--- OUTSIDE RECORDS SUMMARY | 2024-08-03 18:59 | XMS_ITS | Encounter Summary ---
Author Organization [facility] Address [facility] [place] [address] Care Team Providers Care Temporary Administrative Assistant Name Role Phone Lawrence Vila MD Primary Care Provider [phone] Kervin London MD Primary Care Provider [phone] Encounter Details Date Type Department Care Team (Late st Contact Info) Description 12/12/2015 Abstract [facility] Conversion Lawrence Vila MD [id number] [place] [address] Social History Tobacco Use Types Packs/Day Years Used Date Smoking Tobacco: Never Assessed Comments Unknown Sex and Gender Information Value Date Recorded Sex Assigned at Not on file Legal Sex Female 7:59 PM CDT Gender Identity Female 07/08/2021 7:34 AM MEDICAL ASSEMBLER Sexual Orientation Straight 07/08/2021 7: 34 AM MEDICAL ASSEMBLER documented as of this encounter Miscellaneous Notes * Letter - Lawrence Vila MD - 12/12/2015 12:00 AM CDT Dec 12, 2015 Shania Palma [facility] [place] [address] Dear Shania Palma, Thank you for choosing [facility] for your health care needs. We appreciate the opportunity to help you maintain your well being. You recently had a mammogram and bone density test. Your results came back and mammogram was normal, bone density showed improvement since last time. Be sure you are taking calcium supplements. Please remember to follow up as discussed at your last appointment. If you have any questions please feel free to call the office at [phone], Option #3 or Option #1 to make an appointment to discuss these results. Respectfully Yours, Electronically Signed by: Lawrence Vila MD Cc: Patient?s Medical Record CAL ASSEMBLER documented in this encounter Plan of Treatment Upcoming Encounters Date Type Department Care Team (Late st Contact Info) Description 01/22/2025 11:00 AM CDT Office Visit [facility] Audiology [address] [place] [address] Renetta Ram AUD [address] [place] [address] documented as of this encounter Visit Diagnoses Not on filedocumented in this encounter Additional Health Concerns Infection Onset Date Last Indicated Resolved Time COVID-19 Rule Out 09/21/2022 09/21/2022 09/21/2022 9:48 AM CDT COVID-19 Confirmed 09/21/2022 09/21/2022 12:32 AM CDT documented as of this encounter Care Teams Temporary Administrative Assistant Relationship Specialty Start Date End Date Lawrence Vila MD [id number] [place] [address] PCP - General 07/07/16 01/14/20 [place] [address] [place] [address] PCP - General FAMILY PRACTICE 01/15/20 documented as of this encounter
--- OUTSIDE RECORDS SUMMARY | 2024-08-03 18:59 | XMS_ITS | Clinical Summary ---
Author Organization [facility] Address [address] [place] [address] Care Team Providers Care Sciences Dean Name Role Phone Brenda Voss MD Primary Care Provider [phone] Source Comments [facility],non-owned Affiliates and Associated Physician Practices is amultiple site organization consisting of ambulatory clinics and hospital sitesin [place], [place], [place] and [place]. This disclosure is being madepursuant to the Care Everywhere program and may not contain all information available regarding this patient. Last updated 18.[facility] Social History Tobacco Use Types Packs/Day Years Used Date Smoking Tobacco: Never Assessed Sex and Gender Information Value Date Recorded Sex Assigned at Not on file Gender Identity Not on file Sexual Orientation Not on file Plan of Treatment Health Maintenance Due Date Last Done Comments BONE DENSITY TESTING 1950 COLOGUARD (AGES 45-75) - COL ON CA SCREENING 1950 COLON MONITORING 1951 COLONOSCOPY - COLON CA SCREENING 1951 CT COLONOGRAPHY - COLON CA SCREENING 1950 Colorectal Cancer Screening 1950 FIT - COLON CA SCREENING 1950 FLEX SIG - COLON CA SCREENING 1950 LIPID TESTING 1950 MAMMOGRAM 1950 HEPATITIS C SCREENING 12/29/1968 DTAP/TDAP/TD VACCINES (1 - Tdap) 1970 PNEUMOCOCCAL VACCINE 50+ (1 of 1 - PCV) 2001 ZOSTER VACCINE (1 of 2) 2001 COVID-19 VACCINE (1 - 2023-2 5 season) 2024 INFLUENZA VACCINE (#1) 2024 DEPRESSION SCREENING 06/21/2024 Respiratory Syncytial Virus (RSV) Vaccine Pt: or over 60 yrs (1 - 1-dose 75+ series) 2026 HEPATITIS B VACCINE Aged Out No longe r eligible based on patient's age to complete this topic HIB VACCINE Aged Out No longer eligi ble based on patient's age to complete this topic HPV VACCINE Aged Out No longer eligi ble based on patient's age to complete this topic MENINGOCOCCAL (Group B) VACCINE Aged Out No longer eligible based on patient's age to complete this topic MENINGOCOCCAL VACCINE Aged Out No isa meghan eligible based on patient's age to complete this topic Advance Directives Documents on File Type Date Recorded Patient Erp Consultant Expl anation Adv Directive/Living Will/POA 10/23/2013 12:10 PM Care Teams Sciences Dean Relationship Specialty Start Date End Date Brenda Voss MD [address] [address] PCP - General Internal Medicine 10/23/13
--- OUTSIDE RECORDS SUMMARY | 2024-08-03 19:00 | XMS_ITS | Encounter Summary ---
Author Organization [facility] Address [address] [place] [address] Phone Care Team Providers Care Chemistry Associate Name Role Phone Kervin London MD Primary Care Provider [phone] Zonia Meadows DISASTER DIRECTOR Unavailable [phone] Lawrence John Unavailable Encounter Details Date Type Department Care Team (Latest Contact Info) Description 05/16/2024 Orders Only [facility] Scanning, Provider Social History Tobacco Use Types Packs/Day Years Used Date Smoking Tobacco: Never Smokeless Tobacco: Never Alcohol Use Standard Drinks/Week Comments Not Currently 0 (1 standard drink = 0.6 oz pur e alcohol) rare AUDIT-C Answer Date Recorded Frequency of Alcohol Consumption Monthly or less 04/10/2019 Average Number of Drinks 1 or 2 019 Frequency of Binge Drinking Not on file 03/22 Comments No Sex and Gender Information Value Date Recorded Sex Assigned at Not on file Legal Sex Female 4:53 PM TRAPEZE ARTIST Gender Identity Female 11/02/2019 9:02 PM CDT Sexual Orientation Straight 11/02/2019 9: 02 PM CDT documented as of this encounter Plan of Treatment Not on file documented as of this encounter Procedures Procedure Name Priority Date/Time Associated Diagnosis Comments SCAN - RADIOLOGY/IMAGING 05/16/2024 documented in this encounter Results * SCAN - RADIOLOGY/IMAGING (05/16/2024) Anatomical Region Laterality Modality Other us Provider Scanning Final Result documented in this encounter Visit Diagnoses Not on filedocumented in this encounter Care Teams Chemistry Associate Relationship Specialty [place] [address] [facility] [address] [address] [address] PCP - General Family Practice 03/22/19 Zonia Meadows NP [address] [address] Nurse Practitioner Medical Oncology 02/25/22 Lawrence John PA [address] [address] Physician Floor Care Specialist Orthopedic Surgery 06/06/24 documented as of this encounter
--- OUTSIDE RECORDS SUMMARY | 2024-08-03 19:00 | XMS_ITS | Clinical Summary ---
Author Organization [facility] Address [facility] [place] [address] Care Team Providers Care Firer Diesel Locomotive Name Role Phone Kervin London MD Primary Care Provider Allergies Active Allergy Reactions Criticality Noted Date Comments Amoxicillin-Pot Clavulanate Unknown 05/03/20 17 Sulfamethoxazole-Trimethopri m Angioedema,Throat swelling 10/18/2015 Prednisone GI Upset 05/18/2017 Sulfa Antibiotics Unknown 07/04/2021 Medications * This document contains information received from the source organization and may not represent a complete record from that organization. acetaminophen 325 MG tablet Take 1-2 tablets (325-650 mg total) by mouth every 6 (six) hours as needed. Active escitalopram 20 MG tablet Take 1 tablet (20 mg total) by mouth daily. 7 Active Multiple Vitamins-Minerals (MULTIVITAMIN WOMEN 50+) Tab Take 1 tablet by mouth daily. Active anastrozole 1 MG tablet Take 1 tablet by mouth daily. 1 Active albuterol sulfate HFA (PROVENTIL HFA) 108 (90 Base) MCG/ACT inhalerIndication s:Mild intermittent asthma without complication (HHS/HCC) Inhale 1 puff into the lungs every 4 (four) hours as needed. 18 g 1 1 Active vitamin D2, ergocalciferol, (DRISDOL) 1.25 mg capsule Take 1 capsule (1.25 mg total) by mouth once a week. 4 Active diclofenac sodium (VOLTAREN) 1 % gel Apply topically daily as needed. Active pseudoephedrine (SUDAFED) 30 MG tablet Take 1 tablet (30 mg total) by mouth every 6 (six) hours as needed for Congestion. Active fluticasone propionate (FLONASE) 50 MCG/ACT nasal spray 1 spray by Nasal route daily as needed for Rhinitis. Active Active Problems Problem Noted Date Diagnosed Date Trigger ring finger of right hand 01/07/2024 Carpal tunnel syndrome on right 01/04/2024 Cervical radiculopathy 08/10/2023 Nausea, vomiting and diarrhea 09/03/2022 Sensorineural hearing loss (SNHL) of both ears 0 08/05/2021 Purulent postnasal drainage 08/05/2021 Non-recurrent acute suppurat toyin otitis media of left ear without spontaneous rupture of tympanic membrane 07/21/2021 Screen for colon cancer 07/01/2021 Overview (07/01/2021): Added automatically from request for surgery [id number] History of gastric polyp 07/01/2021 Overview (07/01/2021): Added automatically from request for surgery [id number] History of colon polyps 07/01/2021 Overview (07/01/2021): Added automatically from request for surgery [id number] Dysfunction of right eustachian tube 02/09/2020 Impacted cerumen of right ear 01/25/2020 Mixed conductive and sensori neural hearing loss of right ear with restricted hearing of left ear 01/25/2020 Osteoporosis without current pathological fractu re 08/04/2019 Malignant neoplasm of overla pping sites of right breast in female, estrogen receptor positive ([facility]) 08/01/2019 Abnormal mammogram of right breast 04/10/2019 Body aches 09/09/2018 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 Anxiety 05/03/2017 Asthma ([facility]) 05/03/2017 Neuropathy 05/03/2017 Bulge of lumbar disc without myelopathy 06/17/20 16 Lumbar degenerative disc disease 06/17/2016 Sacroiliitis 06/17/2016 Resolved Problems Problem Noted Date Diagnosed Date Resolved Date Sinusitis, unspecified chron icity, unspecified location 09/09/2018 12/21/2022 Sore throat 09/09/2018 12/21/2022 Cough 09/09/2018 12/21/2022 Depression 05/03/2017 12/21/2022 Lumbar facet arthropathy 06/17/201608/2022 Encounters Date Type Department Care Team Description 08/01/2024 4:00 PM METAL CASKET ASSEMBLER Office Visit [facility] Audiology [address] [place] [address] Leanna, Renetta, AUD Hearing Aid Check; Hearing Aid Repair 08/01/2024 Travel 07/24/2024 1:00 PM METAL CASKET ASSEMBLER Office Visit [facility] Audiology [address] [place] [address] Leanna, Renetta, AUD Hearing Aid Check 07/24/2024 Travel 05/16/2024 2:54 PM METAL CASKET ASSEMBLER - 05/16/2024 11:59 PM METAL CASKET ASSEMBLER Hospital Encounter [facility] [address] [place] [address] Hemanth Farooq, CHEMICALS DISTILLER Discharge Disposition: Home or Self Care (Routine Discharge) 05/16/2024 Travel from Last 3 Months Immunizations Name Administration Dates Next Due Arexvy Respiratory Syncytial Virus (RSV, adjuvanted) 0.5 mL, PF 04/09/2023 Fluzone High Dose (IIV, triv alent, 0.5mL) 03/18/2024,04/22/2019,04/04/2018,2016,05/10/2016 Fluzone High Dose - >Age 65 (Prefilled Syringe) 04/09/2023,04/02/2022,03/20/2021,2019,04/22/2019,04/04/2018,04/25/2017,1 07/10/2015 Influenza Adult (Generic) 04/09/2023,,03/20/2021,2019,04/04/2018,05/11/2016 MODERNA COVID-19 (12+) MRNA, LNP-S, PF, 100 MCG/ 0.5 ML DOSE 03/20/2021,02/18/2021 Pneumococcal (Pneumovax 23) 04/22/2019 Pneumococcal (Prevnar 13) 04/04/2018 Shingrix 03/18/2024,12/27/2023 Family History Medical History Relation Comments No Known Problems Brother Alzheimers Father Hypertension Father cva Father No Known Problems Maternal Aunt hepatic cirrhosis Maternal Grandfather No Known Problems Maternal Grandmother No Known Problems Maternal Uncle Lung Disease Mother cardiac disorder Mother neuropathy Mother No Known Problems Paternal Aunt Colon Cancer Paternal Grandfather No Known Problems Paternal Uncle No Known Problems Sister Cancer Son colon Colon Cancer Son Relation Status Comments Brother Father Maternal Aunt Maternal Grandfather Maternal Grandmother Maternal Uncle Mother Paternal Aunt Paternal Grandfather Paternal Uncle Sister Son Social History Tobacco Use Types Packs/Day Years Used Date Smoking Tobacco: Never Smokeless Tobacco: Never Tobacco Cessation:Counseling Given: No Alcohol Use Standard Drinks/Week Comments Yes 1.7 (1 standard drink = 0.6 oz p ure alcohol) socially at holidays AUDIT-C Answer Date Recorded Frequency of Alcohol Consumption Never 09/09/2018 Average Number of Drinks Not on file 019 Frequency of Binge Drinking Not on file 08/20 PHQ-2 Answer Date Recorded Patient Health Questionnaire-2 Score 0 10/29/2023 Education Answer Date Recorded What is the highest level of school you have completed or the highest degree you have received? Some college, no degree 09/09/2018 Comments No Sex and Gender Information Value Date Recorded Sex Assigned at Not on file Legal Sex Female 7:59 PM CDT Gender Identity Female 07/08/2021 7:34 AM METAL CASKET ASSEMBLER Sexual Orientation Straight 07/08/2021 7: 34 AM METAL CASKET ASSEMBLER Last Filed Vital Signs Vital Sign Reading Time Taken Comments Blood Pressure 90/62 01/14/2024 10:47 AM CDT Pulse 75 01/14/2024 10:47 AM CDT Temperature 36.8 C (98.3 F) 01/14/2024 10:47 AM CDT Respiratory Rate 16 01/07/2024 2:36 PM CDT Oxygen Saturation 97% 01/14/2024 10:47 AM CDT Inhaled Oxygen Concentration - - Weight 58.8 kg (129 lb 9.6 oz) 01/14/2024 10:47 AM CDT Height 144.8 cm (4' 9 ) 01/14/2024 10:47 AM CDT Body Mass Index 28.05 01/14/2024 10:47 AM CDT Plan of Treatment Upcoming Encounters Date Type Department Care Team (Late st Contact Info) Description 01/22/2025 11:00 AM CDT Office Visit [facility] Audiology [address] [place], [place] [id number] Leanna Renetta, AUD [address] [place] [address] Health Maintenance Due Date Last Done Comments Hepatitis C 1968 DTaP, Tdap and Td Vaccines (1 - Tdap) 1970 Annual Medicare Wellness Visit 01/04/2016 COVID-19 Vaccine ( season) 2024 03/20/2021, 02/18/2021 PHQ-2 (Physician [place]) 06/21/2024 10/29/2023 Mammogram Screening 12/08/2025 12/09/2023, 12/03/2022, 12/03/2022, Additional history exists Colorectal Cancer Screening Colonoscopy (10 Years) 07/11/2031 07/11/2021 Pneumococcal Vaccine: 65+ Years Completed 04/22/2019, 04/04/2018 RSV Immunization or 60+ Years Completed 04/09/2023 Influenza Adult Completed 03/18/2024, 03/22, 04/09/2023, Additional history exists Zoster Vaccines Completed 03/18/2024, 12/27/2023 Dexa Scan (General) Completed 05/16/2024, 03/02/2022, 03/01/2020 Meningococcal B Vaccine Aged Out No l onger eligible based on patient's age to complete this topic Meningococcal Vaccine Aged Out No isa meghan eligible based on patient's age to complete this topic RSV Immunizations Under 20 Months Aged Out No longer eligible based on patient's age to complete this topic Procedures Procedure Name Priority Date/Time Associated Diagnosis Comments BONE DENSITY/DEXA Routine 05/16/2024 3:1 9 PM METAL CASKET ASSEMBLER Malignant neoplasm of upper-outer quadrant of left breast in female, estrogen receptor positive (CMS/HCC HHS/HCC) clinical biochemical geneticist (current) use of aromatase inhibitors Post-menopausal osteoporosis Screening for diabetes mellitus Other penitentiary (current) drug therapy MAMMOGRAM GENERIC (SCAN ORDER) Routine 12/03/2022 from Last 3 Months or Most Recently Relevant to Health Maintenance Results * BONE DENSITY/DEXA (05/16/2024 3:19 PM METAL CASKET ASSEMBLER) Anatomical Region Laterality Modality Bone Bone Density 05/17/2024 5:44 AM METAL CASKET ASSEMBLER Impressions 05/17/2024 5:45 AM METAL CASKET ASSEMBLER IMPRESSION: WHO Classification: Osteoporosis RECOMMENDATIONS: All patients should ensure an adequate intake of dietary calcium and vitamin D. The NOF recommend adults under the age of 50 need 1000 mg of calcium and 400-800 IU of vitamin D daily. Effective therapy for the prevention and treatment of osteoporosis include bisphosphonates. Follow-up: People with diagnosed cases of osteoporosis or at high risk for fracture should have regular bone mineral density test. For patients eligible for Medicare, routine testing is allowed once every 2 years. Testing frequency can be increased to one year for patients who have rapidly progressing disease, those who are receiving or discontinuing medical therapy to restore bone mass, or have additional risk factors. Referred By: HEMANTH FAROOQ Interpreted By: Timo Monteiro MD, 05/17/2024 5:44 AM Narrative 05/17/2024 5:45 AM METAL CASKET ASSEMBLER [facility] [address] [place] [address] EXAMINATION: BONE DENSITY/DEXA INDICATIONS: Malignant neoplasm of the upper outer quadrant of left breast and female, estrogen receptor positive. Postmenopausal osteoporosis. Long-term use of aromatase inhibitors. TECHNIQUE: DEXA bone mineral density evaluation was performed in the AP projection over the lumbar spine and both hips utilizing standard imaging techniques. ASSESSMENT: The BMD measured at the AP spine L1-L4 is 0.808 g/cm? with a T-score of -2.2. The BMD measured at the left femoral neck is 0.384 g/cm? with a T-score of -4.2. The BMD measured at the left hip is 0.663 g/cm? with a T-score of -2.3. The BMD measured at the right femoral neck is 0.500 g/cm? with a T-score of - 3.1. The BMD measured at the right hip is 0.809 g/cm? with a T-score of -1.1. FRAX 10-year fracture risk: Not reported as some T score is at or below -2.5 Procedure Note Timo Monteiro MD - 05/17/2024 [facility] [address] [place] [address] EXAMINATION: BONE DENSITY/DEXA INDICATIONS: Malignant neoplasm of the upper outer quadrant of left breastand female, estrogen receptor positive. Postmenopausal osteoporosis.Long-term use of aromatase inhibitors. TECHNIQUE: DEXA bone mineral density evaluation was performed in the APprojection over the lumbar spine and both hips utilizing standard imagingtechniques. ASSESSMENT: The BMD measured at the AP spine L1-L4 is 0.808 g/cm? with a T-score of-2.2. The BMD measured at the left femoral neck is 0.384 g/cm? with a T-score of-4.2. The BMD measured at the left hip is 0.663 g/cm? with a T-score of -2.3. The BMD measured at the right femoral neck is 0.500 g/cm? with a T-scoreof -3.1. The BMD measured at the right hip is 0.809 g/cm? with a T-score of -1.1. FRAX 10-year fracture risk: Not reported as some T score is at or below -2.5 IMPRESSION: WHO Classification: Osteoporosis RECOMMENDATIONS: All patients should ensure an adequate intake of dietary calcium andvitamin D. The NOF recommend adults under the age of 50 need 1000 mg ofcalcium and 400-800 IU of vitamin D daily. Effective therapy for theprevention and treatment of osteoporosis include bisphosphonates. Follow-up: People with diagnosed cases of osteoporosis or at high risk for fractureshould have regular bone mineral density test. For patients eligible forMedicare, routine testing is allowed once every 2 years. Testing frequencycan be increased to one year for patients who have rapidly progressingdisease, those who are receiving or discontinuing medical therapy torestore bone mass, or have additional risk factors. Referred By: HEMANTH FAROOQ Interpreted By: Timo Monteiro MD, 05/17/2024 5:44 AM us Hemanth Farooq CHEMICALS DISTILLER DEXA Final Result * MAMMOGRAM (12/03/2022) Anatomical Region Laterality Modality Other us Doc Med Group Scanned SCANNING Final Resu lt from Last 3 Months or Most Recently Relevant to Health Maintenance Insurance MEDICARE [employer] Address: [facility] [address] [place] [address] [facility] INSURANCE Care Teams Firer Diesel Locomotive Relationship Specialty Start [place] [address] [place] [address] PCP - General FAMILY PRACTICE 01/15/20
--- NOTE | 2024-08-03 19:03 | ED.FALL ---
HPI - Fall General Chief Complaint: Fall Stated Complaint: fall from bar height stool Time Seen by Provider: 08/03/24 17:55 History of Present Illness HPI Narrative: Patient is a 74-year-old female who presents ER after a fall. She is climbing into a tall bar chair when it when out from below her. She struck her head. She has mild upper back pain. She reports she has low bone density. No LOC. No blood thinners. No additional concerns. Related Data Allergies Allergy/AdvReac Type Severity Reaction Status Date / Time sulfamethoxazole (From Allergy Swelling Verified 08/03/24 18:14 Bactrim) of Lip/Tongue/Throat trimethoprim (From Bactrim) Allergy Swelling Verified 08/03/24 18:14 of Lip/Tongue/Throat prednisone AdvReac Agitated Verified 08/03/24 18:14 Sulfa (Sulfonamide AdvReac Agitated Verified 08/03/24 18:14 Antibiotics) Review of Systems Constitutional: Constitutional: Reports no additional constitutional complaints Cardiovascular: Cardiovascular: Reports no additional cardiovascular complaints Respiratory: Respiratory: Reports no additional respiratory complaints Gastrointestinal: Gastrointestinal: Reports no additional gastrointestinal complaints Musculoskeletal: Musculoskeletal: Reports back pain, Denies arthralgias, Denies joint swelling and Denies muscle cramps Neurologic: Reports system reviewed and no additional complaints, except as documented PMFSH Past Medical History Medical History (Updated 08/03/24 @ 19:55 by Augustin Russell MD) Breast cancer Surgical History Surgical History (Updated 08/03/24 @ 19:04 by Augustin Russell MD) History of Exam Narrative: GENERAL: Well-appearing, well-nourished, and in no acute distress. HEAD: Normocephalic, atraumatic. ENT: Mucous membranes moist. NECK: Supple. C-spine immobilized. No midline tenderness. CHEST: Clear to auscultation. No respiratory distress. HEART: Regular rate and rhythm. Normal peripheral pulses. Back: Midline tenderness of the mid upper thoracic spine your T6. No step-offs or bruising or abrasion. No lumbar tenderness. EXTREMITIES: Normal range of motion. No edema. SKIN: Warm, dry, no rash. NEURO: Alert and oriented x3. PSYCH: Normal mood and affect. Course Course Emergency Course: Patient informed of results. C-spine cleared. Discharge. Vital Signs Vital signs: Vital Signs Temperature 98 F 08/03/24 18:05 Pulse Rate 80 08/03/24 18:05 Respiratory Rate 16 08/03/24 18:05 Blood Pressure 127/70 08/03/24 18:05 Pulse Oximetry 100 08/03/24 18:05 Oxygen Delivery Room Air 08/03/24 18:05 Temperature 98 F 08/03/24 18:05 Pulse Rate 62 08/03/24 19:40 Respiratory Rate 18 08/03/24 19:40 Blood Pressure 117/59 L 08/03/24 19:40 Pulse Oximetry 98 08/03/24 19:40 Oxygen Delivery Room Air 08/03/24 18:05 MDM - Fall Imaging Data Radiologist's impression: ITS Impressions Head CT 08/03/24 19:26 Impression: No acute intracranial hemorrhage or suspicious mass effect. Cervical Spine CT 08/03/24 19:39 Impression: Straightening and slight reversal of the normal curvature of the cervical spine, likely muscular in origin. Degenerative disease, without acute fracture. Thoracic Spine CT 08/03/24 19:41 Impression: No acute fracture, as detailed above. Discharge Plan Discharge Clinical Impression: Back pain, Minor head injury Patient Disposition: Home, Self-Care Condition: Stable Instructions: Thoracic Back Strain (ED) Additional Instructions: Please return to the emergency department if you develop severe pain that is not controlled by pain medications or if you are unable to walk because of pain or weakness. Return to the emergency department immediately if you develop fevers, loss of bowel or bladder control (dribbling of urine or having accidents you wouldn't normally have), inability to urinate, numbness of your genital or anal area, or weakness/numbness of your legs or arms as these could all be signs of a serious medical emergency. Take Aleve or ibuprofen to help with her discomfort that may worsen over the next couple of days. Patient Language: Citizen Of [place] Follow-up/Referrals: Lita,Kervin Echevarria MD [Primary Care Provider] - 1 Week
[2024-08-03 19:40] VITALS: BP 117/59; PULSE 62; RESP 18; O2SAT 98
== END 2024-08-03 20:36 | disposition home or self-care (01) ==
PROVIDERS: Emergency Provider Emergency Medicine; PCP Family Medicine
DX: S09.90XA Unspecified injury of head, initial encounter (principal); S29.9XXA Unspecified injury of thorax, initial encounter; M85.9 Disorder of bone density and structure, unspecified; Z85.3 Personal history of malignant neoplasm of breast; M47.812 Spondylosis without myelopathy or radiculopathy, cervical region; W08.XXXA Fall from other furniture, initial encounter
CPT/HCPCS: 70450; 72125; 72128; 99284